=== PATIENT | female | born 1960 | race Caucasian/White ===

== ENCOUNTER → 2017-05-12 | Outpatient (CLI) | payer BC ==
--- NOTE | 2017-05-13 13:50 | REP ---
LEFT HAND SERIES: Four views. HISTORY: Left 5th finger pain. Volleyball injury. FINDINGS: There is a comminuted intra-articular slightly impacted fracture of the proximal phalanx of the 5th digit. No other fractures seen. IMPRESSION: 5th proximal phalangeal fracture with comminution, slight impaction and an intra-articular component at the MCP joint. Signed by Dar Moore MD 05/13/2017 03:04 P
== END ==
LOC: M LRY 10:56
PROVIDERS: ATTEND Nurse Practitioner Family
DX: S62.617A Displaced fracture of proximal phalanx of left little finger, initial encounter for closed fracture (principal); X58.XXXA Exposure to other specified factors, initial encounter; Y92.9 Unspecified place or not applicable; Y93.9 Activity, unspecified; Y99.9 Unspecified external cause status

== ENCOUNTER → 2017-11-06 | Outpatient (REF) | payer BC | LOC: M LAB REF 15:11 | DX: J11.1 Influenza due to unidentified influenza virus with other respiratory manifestations (principal) | CPT/HCPCS: 87633 ==

== ENCOUNTER → 2021-09-01 | Outpatient (CLI) | payer BC | LOC: M LABSMTC 12:48 | PROVIDERS: ATTEND Pediatrics | DX: Z20.822 Contact with and (suspected) exposure to COVID-19 (principal) ==